=== PATIENT | male | born 1995 ===

== ENCOUNTER 2019-12-22 18:44 | Emergency (ER) | payer OTHER ==
[~2019-12-22] VITALS: Ht 177.8 cm; Wt 88.3 kg
[2019-12-22 18:57] VITALS: BP 171/102
== END 2019-12-22 19:45 ==
LOC: ER 18:44
DX: R00.0 Tachycardia, unspecified (principal); I10 Essential (primary) hypertension; R05 Cough
CPT/HCPCS: 99283